=== PATIENT | female | born 1990 | race Caucasian/White ===

== ENCOUNTER 2017-11-03 09:06 | Outpatient (CLI) | payer OTHER | END 2017-11-03 19:47 | disposition home or self-care (01) | LOC: SUS 09:06 | DX: E04.2 Nontoxic multinodular goiter (principal); E05.00 Thyrotoxicosis with diffuse goiter without thyrotoxic crisis or storm; E03.9 Hypothyroidism, unspecified | CPT/HCPCS: 76536; 78012; A9516 ==

== ENCOUNTER 2020-04-29 18:37 | Emergency (ER) | payer OTHER, SELFPAY ==
[~2020-04-29] VITALS: Ht 162.6 cm; Wt 116.1 kg
[2020-04-29 18:48] VITALS: BP_SYST 147
--- NOTE | 2020-04-29 18:53 | NUR ---
Patient triaged and placed in ER tent. VSS and patient appears in no acute distress at this time. Awaiting available bed, and MD notified of need for MSE.
--- NOTE | 2020-04-29 18:53 | NUR ---
Patient came in after work for evaluation of COVID-19 symptoms. Patient states exposure on Tuesday. Has had the following symptoms since Tuesday: headache,subjective fevery,nausea,sore throat, and congestion.
--- NOTE | 2020-04-29 18:54 | NUR ---
NELLIE Alvarado at bedside examining patient.
--- NOTE | 2020-04-29 19:11 | NUR ---
Report given to LIDIA Nash for continuation of care.
[2020-04-29 19:15] VITALS: BP_SYST 136
--- NOTE | 2020-04-29 19:15 | NUR ---
Patient given written and verbal discharge instructions and verbalizes understanding. ER MD discussed with patient the results and treatment provided. Patient in stable condition. ID arm band removed. No Rx given. Patient educated on pain management and to follow up with PMD. Pain Scale 0. Opportunity for questions provided and answered. Medication side effect fact sheet provided.
== END 2020-04-29 19:15 | disposition home or self-care (01) ==
LOC: SED 18:37
DX: B34.9 Viral infection, unspecified (principal); R50.9 Fever, unspecified; R05 Cough; M79.18 Myalgia, other site; R63.0 Anorexia; Z20.828 Contact with and (suspected) exposure to other viral communicable diseases; Z91.040 Latex allergy status
CPT/HCPCS: 99283; U0003; C9803